=== PATIENT | female | born 1995 | race Caucasian/White ===

== ENCOUNTER 2021-09-16 21:31 | Emergency (ER) | payer MEDICAID ==
[~2021-09-16] VITALS: Ht 165.1 cm; Wt 87.0 kg
[2021-09-16 21:41] VITALS: BP 136/93
[2021-09-16] MEDS ORDERED: ONDANSETRON 4MG ODT PO ONE (22:00)
[2021-09-16] MEDS ORDERED: HYDROCODONE/ACETAMINOPHEN 5/325MG TABLET PO ONE (22:00)
[2021-09-16] MEDS ORDERED: HYDR-4001 MT (23:15)
[2021-09-16] MEDS ORDERED: IBUP-2030 MT (23:15)
== END 2021-09-16 23:58 | disposition home or self-care (01) ==
LOC: ER 21:31
DX: S61.307A Unspecified open wound of left little finger with damage to nail, initial encounter (principal); Z90.49 Acquired absence of other specified parts of digestive tract; Z98.1 Arthrodesis status; Z91.040 Latex allergy status; W22.8XXA Striking against or struck by other objects, initial encounter; Y93.B3 Activity, free weights; Y92.018 Other place in single-family (private) house as the place of occurrence of the external cause
CPT/HCPCS: 29130; 73140; 99283; Q0162